=== PATIENT | female | born 1990 | race Caucasian/White ===

== ENCOUNTER 2017-02-02 18:11 | Inpatient (IN) | payer OTHER ==
[2017-02-02] MEDS ORDERED: oxyCODONE/Acetamin 5/325 MG* TAB PO PRN (19:18)
[2017-02-02] MEDS ORDERED: Glycerin ADULT SUPP PR PRN (19:18)
[2017-02-02] MEDS ORDERED: Dibucaine 1% 28.35 GM TUBE PR PRN (19:18)
[2017-02-02] MEDS ORDERED: Witch Hazel PAD* JAR TOPICAL PRN (19:18)
[2017-02-02] MEDS ORDERED: Acetaminophen TAB* 325 MG PO PRN (19:18)
[2017-02-02] MEDS: Ibuprofen TAB* 600 MG PO PRN (20:24)
[2017-02-02] MEDS ORDERED: Simethicone CHEW TAB* 80 MG PO SCH (21:00)
[2017-02-02] MEDS ORDERED: OXYTOCIN* 10 UNITS/ML 1 ML VIAL ONE (21:53)
[2017-02-02] MEDS: Docusate CAP* 100 MG PO SCH (22:16)
[2017-02-03] MEDS: Ibuprofen TAB* 600 MG PO PRN ×3 (03:33→17:38)
[2017-02-03] MEDS ORDERED: Ferrous Gluconate TAB* 324 MG TAB PO SCH (09:00)
[2017-02-03 09:25] LABS: Hematocrit 36 % (35-47); Hemoglobin 12.4 g/dl (12.0-16.0); Mean Corpuscular HGB Conc 34 g/dl (31-36); Mean Corpuscular Hemoglobin 34 pg (27-31); Mean Corpuscular Volume 99 fL (80-97); Mean Platelet Volume 10 um3 (7.4-10.4); Red Blood Count 3.67 10^6/ul (4.0-5.4); Red Cell Distribution Width 12 % (10.5-15); White Blood Count 11.2 10^3/ul (3.5-10.8)
[2017-02-03] MEDS: Docusate CAP* 100 MG PO SCH ×2 (09:51→15:59)
--- NOTE | 2017-02-03 19:48 | PTEDU ---
Patient Name: KALPANA QUINTERO KALPANA QUINTERO selected video: Never Ever Shake a Baby to view on 02/03/2017 at 7:47:26 PM from [facility] [id number]
[2017-02-04] MEDS: Ibuprofen TAB* 600 MG PO PRN ×2 (00:11→10:26)
[2017-02-04] MEDS: Docusate CAP* 100 MG PO SCH ×2 (00:11→10:26)
[2017-02-04 10:33] VITALS: BP 114/70
== END 2017-02-04 12:37 | disposition home or self-care (01) | DRG 560 ==
LOC: MCHOBOUT 18:11 → MCHOB 18:26
PROVIDERS: ADMIT Midwife; ATTEND Midwife
PROC: 10E0XZZ Delivery of Products of Conception, External Approach (ICD-10-PCS; principal; 2017-02-02)
PROC: 0KQM0ZZ Repair Perineum Muscle, Open Approach (ICD-10-PCS; 2017-02-02)
DX: O48.0 Post-term pregnancy (principal); O99.344 Other mental disorders complicating childbirth; F32.9 Major depressive disorder, single episode, unspecified; O70.1 Second degree perineal laceration during delivery; F41.9 Anxiety disorder, unspecified; Z3A.40 40 weeks gestation of pregnancy; Z37.0 Single live birth
CPT/HCPCS: 36415; 85025; A9270-GY; J2590